=== PATIENT | female | born 1975 | race Caucasian/White ===

== ENCOUNTER 2019-02-19 21:07 | Observation (INO) | payer BC ==
[~2019-02-19] VITALS: Ht 157.5 cm; Wt 81.7 kg
== END 2019-02-20 06:06 | disposition home or self-care (01) ==
LOC: ER 21:07 → EOR 21:08
PROVIDERS: ADMIT Emergency Medicine
DX: F10.129 Alcohol abuse with intoxication, unspecified (principal); S61.216A Laceration without foreign body of right little finger without damage to nail, initial encounter; F17.210 Nicotine dependence, cigarettes, uncomplicated; Z88.6 Allergy status to analgesic agent; X58.XXXA Exposure to other specified factors, initial encounter
CPT/HCPCS: 96372; 99285-25; G0378; J1200; J1630; J2060

== ENCOUNTER 2019-11-10 12:41 | Emergency (ER) | payer BC ==
[~2019-11-10] VITALS: Ht 160 cm; Wt 81.7 kg
[2019-11-10] MEDS ORDERED: Diflucan150 MG PO (13:20)
[2019-11-10] MEDS ORDERED: Permethrin60 GM UD (13:20)
== END 2019-11-10 13:30 | disposition home or self-care (01) ==
LOC: ER 12:41
DX: B86 Scabies (principal); B37.3 Candidiasis of vulva and vagina; F17.210 Nicotine dependence, cigarettes, uncomplicated; Z88.6 Allergy status to analgesic agent; Z79.899 Other long term (current) drug therapy
CPT/HCPCS: 99282

== ENCOUNTER 2020-12-26 12:34 | Emergency (ER) | payer BC ==
[~2020-12-26] VITALS: Ht 160 cm; Wt 68.0 kg
[~2020-12-26 12:34] MED LIST: Diflucan150 MG PO; Permethrin60 GM UD
[2020-12-26 13:35] LABS: BASOPHILS ABSOLUTE AUTO 0.04 K/mm3 (0.00-0.23); BASOPHILS PERCENT AUTO 1 % (0-2); EOSINOPHILS ABSOLUTE AUTO 0.15 K/mm3 (0.00-0.68); EOSINOPHILS PERCENT AUTO 2 % (0-6); Hematocrit 39.1 % (33.0-51.0); Hemoglobin 12.7 g/dL (11.5-16.0); Mean Corpuscular HGB 29.6 pg (26.0-34.0); Mean Corpuscular HGB Conc 32.5 g/dL (31.5-36.5); Mean Corpuscular Volume 91 fL (80-100); Mean Platelet Volume 8.9 fL (9.1-12.4); Platelet Count 319 K/mm3 (150-400); RDW Coefficient Variation 15.8 % (11.7-14.2); RDW Standard Deviation 53.1 fL (35.1-46.3); Red Blood Cell Count 4.29 M/mm3 (3.80-5.20); White Blood Cell Count 6.33 K/mm3 (4.00-11.30)
[2020-12-26 13:36] LABS: IMMATURE GRAN ABSOLUTE AUTO 0.02 K/mm3 (0.00-0.10); IMMATURE GRAN PERCENT AUTO 0 % (0-1); LYMPHOCYTES ABSOLUTE AUTO 2.28 K/mm3 (0.84-5.20); LYMPHOCYTES PERCENT AUTO 36 % (21-46); MONOCYTES ABSOLUTE AUTO 0.49 K/mm3 (0.16-1.47); MONOCYTES PERCENT AUTO 8 % (4-13); NEUTROPHILS ABSOLUTE AUTO 3.35 K/mm3 (1.96-9.15); NEUTROPHILS PERCENT AUTO 53 % (41-73)
[2020-12-26 13:57] LABS: Alanine Aminotransfer (ALT/SGP 27 U/L (12-78); Albumin, Blood 3.8 g/dL (3.4-5.0); Albumin/Globulin Ratio 1.1 (0.8-1.8); Alk Phos 88 U/L (50-136); Anion Gap 3 mmol/L (6-16); Aspartate Aminotrans (AST/SGOT 13 U/L (12-37); Bilirubin, Total 0.4 mg/dL (0.1-1.0); Blood Urea Nitrogen 12 mg/dL (8-24); CO2, Blood 28 mmol/L (21-32); Calcium, Blood 8.5 mg/dL (8.5-10.1); Chloride, Blood 108 mmol/L (98-108); Globulin, Blood 3.4 g/dL (2.2-4.0); Glomerular Filtration Rate >60 (60-); Glucose, Blood 78 mg/dL (70-99); Potassium, Blood 3.5 mmol/L (3.5-5.5); Sodium, Blood 139 mmol/L (136-145); Total Protein, Blood 7.2 g/dL (6.4-8.2); Troponin I <0.015 ng/mL (0.000-0.040)
== END 2020-12-26 16:02 | disposition home or self-care (01) ==
LOC: ER 12:34
PROVIDERS: Physician Assistant
DX: R07.89 Other chest pain (principal); G56.21 Lesion of ulnar nerve, right upper limb; E03.9 Hypothyroidism, unspecified; Z88.5 Allergy status to narcotic agent; Z88.6 Allergy status to analgesic agent
CPT/HCPCS: 36415; 71046; 80053; 84484; 85025; 93005; 93010; 99284-25

== ENCOUNTER → 2022-06-02 | Outpatient (CLI) | payer BC | END | disposition home or self-care (01) | LOC: LAB SHORT 07:50 → LAB 07:50 | DX: N92.0 Excessive and frequent menstruation with regular cycle (principal) | CPT/HCPCS: 88305 ==

== ENCOUNTER 2024-07-13 11:03 | Day surgery (SDC) | payer BC ==
[~2024-07-13] VITALS: Ht 157.5 cm; Wt 96.6 kg
[2024-07-13] MEDS ORDERED: CeFAZolin Sodium 2,000 MG VIAL ONE (11:09)
[2024-07-13] MEDS ORDERED: propofoL 20 ML IV ONE (11:51)
[2024-07-13] MEDS ORDERED: Lactated Ringer's 1,000 ML IV ONE ×2 (11:54→12:00)
[2024-07-13] MEDS ORDERED: Clindamycin 900mg in D5W 50ML 50 ML IV ONE (11:57)
[2024-07-13] MEDS ORDERED: Scopolamine Hydrobromide Patch ONE (12:11)
[2024-07-13] MEDS ORDERED: Acetaminophen 500 MG Tab ONE (12:11)
[2024-07-13] MEDS ORDERED: Metoclopramide HCl 5MG / ML 2ML Vial ONE (12:15)
[2024-07-13] MEDS ORDERED: Ondansetron HCl 2 MG / ML 2ML Vial ONE (12:15)
[2024-07-13] MEDS ORDERED: HYDROmorphone HCl/Pf 1MG SYR ONE (12:17)
[2024-07-13] MEDS ORDERED: Midazolam HCl 1MG / ML 2ML Vial ONE (12:27)
[2024-07-13] MEDS ORDERED: EPINEPhrine HCl 1 MG/ML 1ML Amp XX ONE (12:50)
[2024-07-13] MEDS ORDERED: Bupivacaine 0.5% HCl 5 MG/ML 30MLVIAL INJ ONE (12:50)
[2024-07-13] MEDS ORDERED: Labetalol HCL 5 MG/ML 4ML Injection (Single Dose) ONE (13:11)
[2024-07-13] MEDS ORDERED: Sugammadex Sodium 200 MG/2ML SDV (100 MG/ML) ONE (13:11)
[2024-07-13] MEDS ORDERED: FentaNYL Citrate 50 MCG/ML 2 ML Injection ONE (13:41)
--- NOTE | 2024-07-13 13:53 | NUR ---
07/13/24 Demar Kahn FENTANYL 25MCG IV GIVEN AT 1350 FOR 710 LEFT ANKLE/FOOT PAIN
[2024-07-13 14:13] VITALS: BP 139/70
[2024-07-13] MEDS ORDERED: OxyCODONE 5 mg/Acetamin 325 mg TABLET ONE (14:34)
--- NOTE | 2024-07-13 14:41 | NUR ---
07/13/24 1441 Demar CastilloOCET 5/325 PO GIVEN AT 1440 FOR LEFT FOOT PAIN AT 410
== END 2024-07-13 14:50 | disposition home or self-care (01) ==
LOC: ORSCSDS 11:03
PROVIDERS: Podiatrist Foot & Ankle Surgery
PROC: 0YPB0YZ Removal of Other Device from Left Lower Extremity, Open Approach (ICD-10-PCS; principal; 2024-07-13 12:30)
DX: T84.84XA Pain due to internal orthopedic prosthetic devices, implants and grafts, initial encounter (principal); F41.9 Anxiety disorder, unspecified; F17.210 Nicotine dependence, cigarettes, uncomplicated; K21.9 Gastro-esophageal reflux disease without esophagitis; E66.9 Obesity, unspecified; Z68.38 Body mass index [BMI] 38.0-38.9, adult
CPT/HCPCS: A9270; J0171; J0690; J1171; J2250; J2405; J2704; J2765; J3010; J7120

== ENCOUNTER → 2024-11-07 | Outpatient (CLI) | payer BC ==
[2024-11-07 17:17] LABS: Source, Urine Clean Catch
[2024-11-07 18:23] LABS: Appearance, Urine Clear (Clear); Bilirubin, Urine Neg (Neg); Blood, Urine 1+ (Neg); Color, Urine Yellow (P-Yellow); Glucose Qualitative, Urine Neg (Neg); Ketones, Urine Neg (Neg); Leukocyte Esterase, Urine Neg (Neg); Nitrite, Urine Neg (Neg); Protein, Urine 1+ (Neg); Urobilinogen, Urine NORM (Normal)
[2024-11-07 19:04] LABS: Amorphous Light (0-Heavy); Bacteria Few /hpf; Red Blood Cells, Urine 0-2 /hpf (0-2); Squamous Epithelial Cells Mod /hpf (Few); White Blood Cells, Urine 0-2 /hpf (0-5)
== END | disposition home or self-care (01) ==
LOC: LAB SHORT 17:16 → LAB 17:16
PROVIDERS: Nurse Practitioner Family
DX: R30.9 Painful micturition, unspecified (principal)
CPT/HCPCS: 81001